=== PATIENT | female | born 1945 | race Caucasian/White ===

== ENCOUNTER 2023-12-20 08:14 | Day surgery (SDC) | payer OTHER ==
[2023-12-16 11:08] VITALS: BMI 28.9
[2023-12-20 08:42] VITALS: RESP 18
[2023-12-20 10:03] VITALS: TEMP 97.2
[2023-12-20 10:25] VITALS: BP 112/66; PULSE 77
== END 2023-12-20 10:20 | disposition home or self-care (01) ==
LOC: FASU-ENDO 08:14
PROVIDERS: ATTEND Internal Medicine Gastroenterology
PROC: 0DB68ZX Excision of Stomach, Via Natural or Artificial Opening Endoscopic, Diagnostic (ICD-10-PCS; 2023-12-20)
PROC: 0DB38ZX Excision of Lower Esophagus, Via Natural or Artificial Opening Endoscopic, Diagnostic (ICD-10-PCS; 2023-12-20)
PROC: 0DB98ZX Excision of Duodenum, Via Natural or Artificial Opening Endoscopic, Diagnostic (ICD-10-PCS; principal; 2023-12-20 09:32)
DX: K31.9 Disease of stomach and duodenum, unspecified (principal); R12 Heartburn
CPT/HCPCS: 88305-TC; 88342-TC